=== PATIENT | female | born 1990 | race Caucasian/White ===

== ENCOUNTER 2020-12-21 16:57 | Emergency (ER) | payer BC ==
[2020-12-21 18:33] LABS: Clarity Cloudy (Clear); Specific Gravity, Urine 1.015 (1.002-1.036); pH, Urine 6.5 (5.0-9.0)
[2020-12-21 18:43] LABS: Leukocyte Unable to Interpret (Negative); Nitrite Unable to Interpret (Negative)
[2020-12-21 18:44] LABS: Glucose, Urine (Dipstick) Unable to Interpret mg/dL (Negative); Ketone, Urine Unable to Interpret mg/dL (Negative); Protein, Urine (Dipstick) Unable to Interpret mg/dl (Neg-Trace); Urobilinogen UNABLE TO INTERPRET mg/dL (Less than 2)
[2020-12-21 18:45] LABS: Bilirubin Unable to Interpret (Negative); Blood, Urine Unable to Interpret (Negative)
[2020-12-21 18:46] LABS: RBC/HPF Greater than 50 HPF (0-3)
[2020-12-21 18:48] LABS: WBC/HPF 21-50 HPF (0-3)
[2020-12-21 18:49] LABS: Squamous Epithelial 0-3 HPF (0-3)
[2020-12-21 18:50] LABS: Bacteria/HPF Rare-Few HPF (None Seen)
[2020-12-21] MEDS ORDERED: Phenazopyridine HCl 97.5 MG TABLET ONE (19:04)
[2020-12-21 19:11] LABS: #Eosinphils 0.1 10x3/uL (0.0-0.5); #Monocytes 0.7 10x3/uL (0.0-1.1); #Neutrophils 15.4 10x3/uL (1.5-8.4); %Basophils 0.2 % (0.0-2.0); %Eosinophils 0.4 % (0.0-6.0); %Lymphocytes 12.4 % (18.0-47.0); %Monocytes 3.9 % (0.0-10.0); %Neutrophils 82.8 % (40.0-75.0); Hemoglobin 13.4 g/dL (12.0-15.5); Mean Corpuscular HGB CONC 33.1 g/dL (32.0-36.0); Mean Corpuscular Hemoglobin 30.5 pg (27.0-33.0); Mean Platelet Volume 9.9 fl (7.4-10.4); Platelet Count 275 10x3/uL (150-450); White Blood Cell (WBC) Count 18.6 10x3/uL (3.5-10.5)
[2020-12-21 19:14] LABS: Pregnancy Test - Urine (BHCG) Negative (Negative); Pregu Control Bar Appear? YES (CONTROL BAR); Specific Gravity 1.015 (1.002-1.036)
[2020-12-21 19:17] LABS: Pregu Control Background? CLEAR/WHITE (CLR/WHITE)
[2020-12-21 19:22] LABS: ALT (SGPT) 28 U/L (8-55); AST (SGOT) 27 U/L (5-34); Albumin 4.5 g/dL (3.5-5.0); Alkaline Phosphatase 60 U/L (40-110); Anion Gap 12 mmol/L (10-20); BUN (Urea Nitrogen) 11 mg/dL (7.0-18.7); Bilirubin, Total 0.4 mg/dL (0.2-1.2); Calc. Creatinine Clearance 0 mL/min (70-130); Calcium 9.7 mg/dL (7.8-10.44); Carbon Dioxide 27 mmol/L (22-29); Chloride 102 mmol/L (98-107); Globulin 2.6 g/dL (2.4-3.5); Glucose 98 mg/dL (70-105); Protein, Total 7.1 g/dL (6.0-8.3); Sodium 137 mmol/L (136-145)
[2020-12-21] MEDS ORDERED: cefTRIAXone\\ROCEPHIN 1 GM VIAL ONE (20:06)
== END 2020-12-21 20:29 | disposition home or self-care (01) ==
LOC: CSHERS 16:57
DX: N30.91 Cystitis, unspecified with hematuria (principal)
CPT/HCPCS: 80053; 81003; 81015; 81025; 85025; 87086; 96365; J0696

== ENCOUNTER 2023-08-06 13:48 | Outpatient (CLI) | payer BC | END 2023-08-06 13:49 | disposition home or self-care (01) | LOC: CSHMAMMO 13:48 | PROVIDERS: ATTEND Obstetrics & Gynecology | DX: Z12.31 Encounter for screening mammogram for malignant neoplasm of breast (principal); Z98.82 Breast implant status | CPT/HCPCS: 77063; 77067 ==

== ENCOUNTER 2025-03-25 09:02 | Outpatient (CLI) | payer BC | END 2025-03-25 09:03 | disposition home or self-care (01) | LOC: CSHCP 09:02 | PROVIDERS: ATTEND Internal Medicine | DX: R07.89 Other chest pain (principal) | CPT/HCPCS: 94060; 94664; 94726; 94729; 94760 ==